=== PATIENT | male | born 1980 | race African-American/Black ===

== ENCOUNTER 2023-04-01 00:11 | Emergency (ER) | payer OTHER ==
[~2023-04-01] VITALS: Ht 175.3 cm; Wt 72.0 kg
[2023-04-01 00:15] VITALS: BP 125/61; PULSE 86; RESP 16; TEMP 98.3
[2023-04-01] MEDS ORDERED: KETOROLAC TROMETHAMINE 30 MG/ML VIAL IM ONE (01:15)
[2023-04-01] MEDS ORDERED: LIDOCAINE 5% TRANSDERMAL PATCH TD ONE (01:15)
[2023-04-01] MEDS ORDERED: CYCLOBENZAPRINE HCL 10 MG TABLET PO ONE (01:15)
[2023-04-01] MEDS ORDERED: LIDO700A15 TP (02:32)
[2023-04-01] MEDS ORDERED: IBUP-1492 PO (02:32)
[2023-04-01] MEDS ORDERED: CYCL-448 PO (02:32)
== END 2023-04-01 02:42 | disposition home or self-care (01) ==
LOC: EMS 00:13
DX: M54.17 Radiculopathy, lumbosacral region (principal)
CPT/HCPCS: 99283; 96372; J1885